=== PATIENT | male | born 1975 | race Caucasian/White ===

== ENCOUNTER 2020-09-09 16:01 | Outpatient (CLI) | payer OTHER, SELFPAY | END 2020-09-09 16:02 | disposition home or self-care (01) | LOC: ANHCOVIDVC 16:02 | PROVIDERS: PCP Internal Medicine | DX: Z23 Encounter for immunization (principal) | CPT/HCPCS: 0001A; 91300 ==

== ENCOUNTER 2020-09-30 16:07 | Outpatient (CLI) | payer OTHER, SELFPAY | END 2020-09-30 16:08 | disposition home or self-care (01) | LOC: ANHCOVIDVC 16:07 | PROVIDERS: PCP Internal Medicine | DX: Z23 Encounter for immunization (principal) | CPT/HCPCS: 0002A; 91300 ==